=== PATIENT | female | born 1950 | race African-American/Black ===

== ENCOUNTER 2017-03-03 11:31 | Inpatient (IN) | payer OTHER ==
--- NOTE | 2017-03-03 18:21 | HP ---
CIWA Score - CIWA Score Nausea/Vomitin Muscle Tremors: 4-Moderate,w/Arms Extend Anxiety: 3 Agitation: 4-Moderately Restless Paroxysmal Sweats: 3 Orientation: 0-Oriented Tacttile Disturbances: 1-Very Mild Itch/Numbness Auditory Disturbances: 0-None Visual Disturbances: 0-None Headache: 1-Very Mild CIWA-Ar Total Score: 19 Admission ROS BHS - HPI Chief Complaint: alcohol withdrawal sx Allergies/Adverse Reactions: Allergies Allergy/AdvReac Type Severity Reaction Status Date / Time No Known Allergies Allergy Verified 03/03/17 16:03 History of Present Illness: 66 yo with h/o chronic alcoholism admitted requesting inpatient detoxification reports alcohol withdrawal sx when she does not drink, recent wt loss and blackouts. PMHX HTN, has not been taking meds, knee pain from arthritis, needs walker to ambualte. no h/o suicide attempts in [past, no suicidal ideaton at presetnt, no seizures, no DTS. - Ebola screening Have you traveled outside of the country in the last 21 days: No Have you had contact with anyone from an Ebola affected area: No Have you been sick,other than usual withdrawal symptoms: No Do you have a fever: No - Review of Systems Constitutional: Chills, Diaphoresis, Loss of Appetite, Night Sweats, Weakness, Unintentional Wgt. Loss EENT: reports: No Symptoms Reported Respiratory: reports: No Symptoms reported Cardiac: reports: No Symptoms Reported GI: reports: Diarrhea, Nausea, Poor Appetite, Poor Fluid Intake, Indigestion, Abdominal cramping : reports: No Symptoms Reported Musculoskeletal: reports: Back Pain, Joint Pain, Muscle Pain, Joint Stiffness Integumentary: reports: Dryness, Flushing, Sweating Neuro: reports: Headache, Numbness, Tingling, Tremors, Unsteady Gait (uses walker, knee pain from arthritis) Endocrine: reports: No Symptoms Reported Hematology: reports: No Symptoms Reported Psychiatric: reports: Judgement Intact, Mood/Affect Appropiate, Orientated x3, Agitated, Anxious, Depressed Other Systems: Reviewed and Negative Patient History - Patient Medical History Hx Anemia: No Hx Asthma: No Hx Chronic Obstructive Pulmonary Disease (COPD): No Hx Cancer: No Hx Cardiac Disorders: No Hx Congestive Heart Failure: No Hx Hypertension: Yes Hx Hypercholesterolemia: No Hx Pacemaker: No HX Cerebrovascular Accident: No Hx Seizures: No Hx Dementia: No Hx Diabetes: No Hx Gastrointestinal Disorders: No Hx Liver Disease: No Hx Genitourinary Disorders: No Hx Sexually Transmitted Disorders: No Hx Renal Disease (ESRD): No Hx Thyroid Disease: No Hx Human Immunodeficiency Virus (HIV): No Hx Hepatitis C: No Hx Depression: No Hx Suicide Attempt: No Hx Bipolar Disorder: No Hx Schizophrenia: No - Patient Surgical History Past Surgical History: Yes Hx Orthopedic Surgery: Yes (sx rt little toe) Other Surgical History: blephroplasty Anesthesia Reaction: No - PPD History Previous Implant?: Yes Documented Results: Positive w/o proof Implanted On Prior R Admission?: No PPD to be Administered?: No - Reproductive History Patient is a Female of Child Bearing Age (11 -55 yrs old): No Patient : No - Smoking Cessation Smoking history: Current every day smoker Have you smoked in the past 12 months: Yes Aproximately how many cigarettes per day: 20 Hx Chewing Tobacco Use: No Initiated information on smoking cessation: Yes 'Breaking Loose' booklet given: 03/03/17 - Substance & Tx. History Hx Alcohol Use: Yes Hx Substance Use: No Substance Use Type: Alcohol Hx Substance Use Treatment: Yes (2 years ago inpatient detox) - Substances Abused Alcohol Route: Oral Frequency: Daily Amount used: vodka(1 pint)beer(4-40 oz) Age of first use: 14 Date of Last Use: 03/03/17 Family Disease History - Family Disease History Family Disease History: Other: Father (alcoholism), Mother (alcoholism) Admission Physical Exam BHS - Vital Signs Vital Signs: Vital Signs - 24 hr 03/03/17 15:29 Temperature 97.2 F L Pulse Rate 79 Respiratory 20 Rate Blood Pressure 210/108 - Physical General Appearance: Yes: Nourished, Appropriately Dressed, Disheveled, Moderate Distress, Tremorous, Irritable, Sweating, Anxious HEENTM: Yes: Within Normal Limits, EOMI, Hearing grossly Normal, Normal ENT Inspection, Normocephalic, Normal Voice, YUMI, Pharynx Normal Respiratory: Yes: Within Normal Limits, Chest Non-Tender, Lungs Clear, Normal Breath Sounds, No Respiratory Distress, No Accessory Muscle Use Neck: Yes: Within Normal Limits, No masses,lesions,Nodules, Supple, Trachea in good position Breast: Yes: Breast Exam Deferred Cardiology: Yes: Within Normal Limits, Regular Rhythm, Regular Rate, S1, S2 Abdominal: Yes: Within Normal Limits, Normal Bowel Sounds, Non Tender, Flat, Soft Genitourinary: Yes: Within Normal Limits Back: Yes: Normal Inspection, Decreased Range of Motion, Muscle Spasm Musculoskeletal: Yes: full range of Motion, Gait Steady, Pelvis Stable, Back pain, Joint Stiffness (knees, uses walker), Muscle weakness Extremities: Yes: Normal Capillary Refill, Normal Inspection, Normal Range of Motion, Tremors Neurological: Yes: epic beacon analyst II-XII NML intact, Fully Oriented, Alert, Motor Strength 5/5, Normal Response, Depressed Affect Integumentary: Yes: Normal Color, Warm, Diaphoresis, Moist Lymphatic: Yes: Within Normal Limits - Addiitonal Findings: withdrawal sx - Diagnostic (1) Alcohol dependence with uncomplicated withdrawal Current Visit: Yes Status: Acute (2) Blackout Current Visit: Yes Status: Acute (3) Essential (primary) hypertension Current Visit: Yes Status: Acute (4) Weight loss Current Visit: Yes Status: Acute (5) Knee pain, chronic Current Visit: Yes Status: Acute Cleared for Admission [facility] - Detox or Rehab [facility] Level of Care: Medically Managed Detox Regimen/Protocol: Librium [facility] Breath Alcohol Content Breath Alcohol Content: 0.150 Urine Pregancy Test - Result Urine Test Results: Negative- NO Line Present Urine Drug Screen - Results Drug Screen Negative: Yes
[2017-03-03] MEDS ORDERED: chlordiazePOXIDE HCL 25 MG CAPSULE PO PRN (18:22)
[2017-03-03] MEDS ORDERED: diphenhydrAMINE HCL 50 MG CAPSULE PO PRN (18:22)
[2017-03-03] MEDS ORDERED: hydrOXYzine PAMOATE 50 MG CAPSULE (FP) PO PRN (18:22)
[2017-03-03] MEDS ORDERED: IBUPROFEN 400 MG TABLET (FP) PO PRN (18:22)
[2017-03-03] MEDS ORDERED: LOPERAMIDE HCL 2 MG CAPSULE PO PRN (18:22)
[2017-03-03] MEDS ORDERED: MENTHOL/PHENOL 1 EACH UD MM PRN (18:22)
[2017-03-03] MEDS ORDERED: MAG HYDROX/AL HYDROX/SIMETH 30 ML UNIT-DOSE CUP PO PRN (18:22)
[2017-03-03] MEDS ORDERED: MAGNESIUM HYDROX 2400MG/30ML ORAL SUSPENSION 30 ML CUP PO PRN (18:22)
[2017-03-03] MEDS ORDERED: MAGNESIUM CITRATE 300 ML BOTTLE PO PRN (18:22)
[2017-03-03] MEDS ORDERED: ACETAMINOPHEN 325 MG TABLET (FP) PO PRN (18:22)
[2017-03-03] MEDS ORDERED: guaiFENesin/D-METHORPHAN HB 10 ML UNIT-DOSE CUPS PO PRN (18:22)
[2017-03-03] MEDS ORDERED: P-EPHED 60MG/TRIPROLIDI 2.5MG TABLET PO PRN (18:22)
[2017-03-03] MEDS ORDERED: NICOTINE POLACRILEX 2 MG GUM BC PRN (18:22)
[2017-03-03] MEDS ORDERED: chlordiazePOXIDE HCL 25 MG CAPSULE PO ONE (19:00)
[2017-03-03] MEDS: HYDROCHLOROTHIAZIDE 25 MG TABLET (FP) PO SCH (19:48)
[2017-03-03] MEDS: NICOTINE 14 MG/24 HOURS TOPICAL PATCH TD SCH (20:17)
[2017-03-03 21:58] LABS: URINE APPEARANCE SLCLOUDY; URINE BILIRUBIN NEGATIVE (NEGATIVE); URINE BLOOD NEGATIVE (NEGATIVE); URINE COLOR YELLOW; URINE GLUCOSE (UA) NEGATIVE (NEGATIVE); URINE KETONE NEGATIVE (NEGATIVE); URINE NITRITE NEGATIVE (NEGATIVE); URINE PROTEIN NEGATIVE (NEGATIVE); URINE UROBILINOGEN NEGATIVE mg/dL (0.2-1.0)
[2017-03-03] MEDS: ZOLPIDEM TARTRATE 10 MG TABLET (PARK CARE ONLY) PO PRN (22:13)
[2017-03-03] MEDS: CYCLOBENZAPRINE HCL 10 MG TABLET (FP) PO SCH (22:13)
[2017-03-03] MEDS: chlordiazePOXIDE HCL 25 MG CAPSULE PO SCH (22:13)
[2017-03-03] MEDS: THIAMINE HCL 100 MG TABLET (FP) PO SCH (22:13)
[2017-03-03] MEDS: cloNIDine HCL 0.1 MG TABLET PO PRN (22:40)
[2017-03-03 22:53] LABS: URINE LEUK ESTERASE 1+ (NEGATIVE)
[2017-03-03 23:38] LABS: URINE BACTERIA MANY /hpf (NEGATIVE); URINE RBC 0-2 /hpf (0-3)
[2017-03-04] MEDS: chlordiazePOXIDE HCL 25 MG CAPSULE PO SCH ×4 (05:20→22:53)
[2017-03-04] MEDS: CYCLOBENZAPRINE HCL 10 MG TABLET (FP) PO SCH ×3 (05:21→22:53)
[2017-03-04 09:37] LABS: MCH 32.8 pg (25.7-33.7); MCHC 32.7 g/dl (32.0-36.0); MEAN CELL VOLUME 100.3 fl (80-96); MEAN PLT VOLUME 8.8 fl (7.5-11.1); PLATELET COUNT 116 K/MM3 (134-434); RDW 13.9 % (11.6-15.6); WHITE BLOOD COUNT 3.8 K/mm3 (4.0-10.0)
[2017-03-04] MEDS: PRENATAL VITAMINS W/ FOLIC ACID TABLET (FP) PO SCH (10:00)
[2017-03-04 10:03] LABS: ALBUMIN 2.7 g/dl (3.4-5.0); ALK PHOS 83 U/L (45-117); ANION GAP 5 (8-16); CALCIUM 8.5 mg/dL (8.5-10.1); CO2 34 mmol/L (21-32); CREATININE 0.9 mg/dL (0.55-1.02); GLUCOSE,RANDOM 87 mg/dL (74-106); SGOT/AST 94 U/L (15-37); SGPT/ALT 49 U/L (12-78)
[2017-03-04] MEDS: NICOTINE 14 MG/24 HOURS TOPICAL PATCH TD SCH (10:11)
[2017-03-04] MEDS: amLODIPine BESYLATE 10 MG TABLET (FP) PO SCH (10:11)
[2017-03-04] MEDS: cloNIDine HCL 0.1 MG TABLET PO PRN (10:11)
[2017-03-04] MEDS: HYDROCHLOROTHIAZIDE 25 MG TABLET (FP) PO SCH (10:11)
--- NOTE | 2017-03-04 10:11 | PN ---
S CIWA - CIWA Score Nausea/Vomitin Muscle Tremors: 3 Anxiety: 3 Agitation: 2 Paroxysmal Sweats: 1-Minimal Palms Moist Orientation: 0-Oriented Tacttile Disturbances: 1-Very Mild Itch/Numbness Auditory Disturbances: 1-Very Mild Visual Disturbances: 0-None Headache: 2-Mild CIWA-Ar Total Score: 16 BHS Progress Note (SOAP) Subjective: alert,irritable,anxious,interrupted sleep,pain in the body Objective: 03/04/17 10:09 Vital Signs Temperature 99.5 F 03/04/17 06:00 Pulse Rate 72 03/04/17 06:00 Respiratory Rate 18 03/04/17 06:00 Blood Pressure 143/71 03/04/17 06:00 O2 Sat by Pulse Oximetry (%) ekg nsr lvh no chest pain,no Laboratory Last Values WBC 3.8 K/mm3 (4.0-10.0) L 03/04/17 07:00 RBC 3.71 M/mm3 (3.60-5.2) 03/04/17 07:00 Hgb 12.2 GM/dL (10.7-15.3) 03/04/17 07:00 Hct 37.3 % (32.4-45.2) 03/04/17 07:00 MCV 100.3 fl (80-96) H 03/04/17 07:00 MCH 32.8 pg (25.7-33.7) 03/04/17 07:00 MCHC 32.7 g/dl (32.0-36.0) 03/04/17 07:00 RDW 13.9 % (11.6-15.6) 03/04/17 07:00 Plt Count 116 K/MM3 (134-434) L 03/04/17 07:00 MPV 8.8 fl (7.5-11.1) 03/04/17 07:00 Urine Color Yellow 03/03/17 21:30 Urine Appearance Slcloudy 03/03/17 21:30 Urine pH 5.0 (5.0-8.0) 03/03/17 21:30 Ur Specific [place] <= 1.005 (1.005-1.025) 03/03/17 21:30 Urine Protein Negative (NEGATIVE) 03/03/17 21:30 Urine Glucose (UA) Negative (NEGATIVE) 03/03/17 21:30 Urine Ketones Negative (NEGATIVE) 03/03/17 21:30 Urine Blood Negative (NEGATIVE) 03/03/17 21:30 Urine Nitrite Negative (NEGATIVE) 03/03/17 21:30 Urine Bilirubin Negative (NEGATIVE) 03/03/17 21:30 Urine Urobilinogen Negative mg/dL (0.2-1.0) 03/03/17 21:30 Ur Leukocyte Esterase 1+ (NEGATIVE) H 03/03/17 21:30 Urine RBC 0-2 /hpf (0-3) 03/03/17 21:30 Urine WBC 5-10 (3-5) 03/03/17 21:30 Urine Bacteria Many /hpf (NEGATIVE) 03/03/17 21:30 sob,no dizziness 03/04/17 10:10 labs pending Assessment: 03/04/17 10:10 withdrawal symptom Plan: continue detox,bp monitoring
[2017-03-04 10:52] LABS: SICKLE CELL SCREEN NEGATIVE (NEGATIVE)
--- NOTE | 2017-03-04 12:04 | EKG ---
Test Reason : Blood Pressure : / mmHG Vent. Rate : 079 BPM Atrial Rate : 079 BPM P-R Int : 166 ms QRS Dur : 074 ms QT Int : 396 ms P-R-T Axes : 080 025 068 degrees QTc Int : 454 ms NORMAL SINUS RHYTHM MINIMAL VOLTAGE CRITERIA FOR LVH, MAY BE NORMAL VARIANT BORDERLINE ECG NO PREVIOUS ECGS AVAILABLE Confirmed by FIONA GARCIA MD ([id number]) on 03/04/2017 12:04:44 PM Referred By: Confirmed By:FIONA GARCIA MD
[2017-03-04] MEDS ORDERED: cloNIDine HCL 0.1 MG TABLET PO ONE (14:30)
[2017-03-04] MEDS: cloNIDine HCL 0.1 MG TABLET PO SCH (22:53)
[2017-03-04] MEDS: ZOLPIDEM TARTRATE 10 MG TABLET (PARK CARE ONLY) PO PRN (22:53)
[2017-03-04] MEDS: THIAMINE HCL 100 MG TABLET (FP) PO SCH (22:53)
[2017-03-05] MEDS: chlordiazePOXIDE HCL 25 MG CAPSULE PO SCH ×3 (05:59→17:19)
[2017-03-05] MEDS: CYCLOBENZAPRINE HCL 5 MG TABLET PO SCH ×3 (05:59→23:08)
--- NOTE | 2017-03-05 10:02 | PN ---
S CIWA - CIWA Score Nausea/Vomitin Muscle Tremors: 3 Anxiety: 3 Agitation: 2 Paroxysmal Sweats: 1-Minimal Palms Moist Orientation: 0-Oriented Tacttile Disturbances: 1-Very Mild Itch/Numbness Auditory Disturbances: 1-Very Mild Visual Disturbances: 0-None Headache: 2-Mild CIWA-Ar Total Score: 16 BHS Progress Note (SOAP) Subjective: alert,irritable,anxious,interrupted sleep,pain in the body Objective: 03/05/17 09:56 Vital Signs Temperature 98.1 F 03/05/17 09:27 Pulse Rate 77 03/05/17 09:27 Respiratory Rate 17 03/05/17 09:27 Blood Pressure 150/90 03/05/17 09:27 O2 Sat by Pulse Oximetry (%) Laboratory Last Values WBC 3.8 K/mm3 (4.0-10.0) L 03/04/17 07:00 RBC 3.71 M/mm3 (3.60-5.2) 03/04/17 07:00 Hgb 12.2 GM/dL (10.7-15.3) 03/04/17 07:00 Hct 37.3 % (32.4-45.2) 03/04/17 07:00 MCV 100.3 fl (80-96) H 03/04/17 07:00 MCH 32.8 pg (25.7-33.7) 03/04/17 07:00 MCHC 32.7 g/dl (32.0-36.0) 03/04/17 07:00 RDW 13.9 % (11.6-15.6) 03/04/17 07:00 Plt Count 116 K/MM3 (134-434) L 03/04/17 07:00 MPV 8.8 fl (7.5-11.1) 03/04/17 07:00 Sickle Cell Screen Negative (NEGATIVE) 03/04/17 07:00 Sodium 144 mmol/L (136-145) 03/04/17 07:00 Potassium 3.5 mmol/L (3.5-5.1) 03/04/17 07:00 Chloride 105 mmol/L (98-107) 03/04/17 07:00 Carbon Dioxide 34 mmol/L (21-32) H 03/04/17 07:00 Anion Gap 5 (8-16) L 03/04/17 07:00 BUN 21 mg/dL (7-18) H 03/04/17 07:00 Creatinine 0.9 mg/dL (0.55-1.02) 03/04/17 07:00 Creat Clearance w eGFR > 60 (>60) 03/04/17 07:00 Random Glucose 87 mg/dL (74-106) 03/04/17 07:00 Calcium 8.5 mg/dL (8.5-10.1) 03/04/17 07:00 Total Bilirubin 1.0 mg/dL (0.2-1.0) 03/04/17 07:00 AST 94 U/L (15-37) H 03/04/17 07:00 ALT 49 U/L (12-78) 03/04/17 07:00 Alkaline Phosphatase 83 U/L (45-117) 03/04/17 07:00 Total Protein 7.0 g/dl (6.4-8.2) 03/04/17 07:00 Albumin 2.7 g/dl (3.4-5.0) L 03/04/17 07:00 Urine Color Yellow 03/03/17 21:30 Urine Appearance Slcloudy 03/03/17 21:30 Urine pH 5.0 (5.0-8.0) 03/03/17 21:30 Ur Specific [place] <= 1.005 (1.005-1.025) 03/03/17 21:30 Urine Protein Negative (NEGATIVE) 03/03/17 21:30 Urine Glucose (UA) Negative (NEGATIVE) 03/03/17 21:30 Urine Ketones Negative (NEGATIVE) 03/03/17 21:30 Urine Blood Negative (NEGATIVE) 03/03/17 21:30 Urine Nitrite Negative (NEGATIVE) 03/03/17 21:30 Urine Bilirubin Negative (NEGATIVE) 03/03/17 21:30 Urine Urobilinogen Negative mg/dL (0.2-1.0) 03/03/17 21:30 Ur Leukocyte Esterase 1+ (NEGATIVE) H 03/03/17 21:30 Urine RBC 0-2 /hpf (0-3) 03/03/17 21:30 Urine WBC 5-10 (3-5) 03/03/17 21:30 Urine Bacteria Many /hpf (NEGATIVE) 03/03/17 21:30 RPR Titer Nonreactive (NONREACTIVE) 03/04/17 07:00 Hepatitis C Antibody >11.0 s/co ratio (0.0-0.9) H 03/03/17 07:00 known case of hepatitis c seen in clinic at [facility],she will follow up with her pmd in clinic at the [facility] after discharge from detox 03/05/17 10:03 Assessment: 03/05/17 10:04 withdrawal symptom Plan: continue detox
[2017-03-05] MEDS: HYDROCHLOROTHIAZIDE 25 MG TABLET (FP) PO SCH (10:17)
[2017-03-05] MEDS: NICOTINE 14 MG/24 HOURS TOPICAL PATCH TD SCH (10:17)
[2017-03-05] MEDS: PRENATAL VITAMINS W/ FOLIC ACID TABLET (FP) PO SCH (10:17)
[2017-03-05] MEDS: cloNIDine HCL 0.1 MG TABLET PO SCH ×2 (10:17→22:06)
[2017-03-05] MEDS: amLODIPine BESYLATE 10 MG TABLET (FP) PO SCH (10:17)
[2017-03-05] MEDS: THIAMINE HCL 100 MG TABLET (FP) PO SCH (22:05)
[2017-03-05] MEDS: chlordiazePOXIDE 5 MG CAPSULE PO SCH (22:05)
[2017-03-06] MEDS: CYCLOBENZAPRINE HCL 5 MG TABLET PO SCH ×3 (06:17→22:12)
[2017-03-06] MEDS: chlordiazePOXIDE 5 MG CAPSULE PO SCH ×3 (06:17→17:55)
--- NOTE | 2017-03-06 09:57 | PN ---
S Progress Note (SOAP) Subjective: alert,interrupted sleep Objective: 03/06/17 09:55 Vital Signs Temperature 97.7 F 03/06/17 06:10 Pulse Rate 63 03/06/17 06:10 Respiratory Rate 16 03/06/17 06:10 Blood Pressure 150/74 03/06/17 06:10 O2 Sat by Pulse Oximetry (%) Assessment: 03/06/17 09:56 withdrawal symptom Plan: continue detox,discharge in am
[2017-03-06] MEDS: amLODIPine BESYLATE 10 MG TABLET (FP) PO SCH (10:05)
[2017-03-06] MEDS: PRENATAL VITAMINS W/ FOLIC ACID TABLET (FP) PO SCH (10:05)
[2017-03-06] MEDS: NICOTINE 14 MG/24 HOURS TOPICAL PATCH TD SCH (10:05)
[2017-03-06] MEDS: cloNIDine HCL 0.1 MG TABLET PO SCH ×2 (10:05→23:12)
[2017-03-06] MEDS: HYDROCHLOROTHIAZIDE 25 MG TABLET (FP) PO SCH (10:05)
[2017-03-06] MEDS: THIAMINE HCL 100 MG TABLET (FP) PO SCH (22:12)
[2017-03-06] MEDS: chlordiazePOXIDE HCL 10 MG CAPSULE PO SCH (23:12)
[2017-03-07] MEDS: CYCLOBENZAPRINE HCL 5 MG TABLET PO SCH (06:29)
[2017-03-07] MEDS: chlordiazePOXIDE HCL 10 MG CAPSULE PO SCH (06:29)
[2017-03-07] MEDS: PRENATAL VITAMINS W/ FOLIC ACID TABLET (FP) PO SCH (09:50)
[2017-03-07] MEDS: amLODIPine BESYLATE 10 MG TABLET (FP) PO SCH (09:51)
[2017-03-07] MEDS: HYDROCHLOROTHIAZIDE 25 MG TABLET (FP) PO SCH (09:51)
[2017-03-07] MEDS: cloNIDine HCL 0.1 MG TABLET PO SCH (09:51)
--- NOTE | 2017-03-07 09:53 | DS ---
[facility] Detox Discharge Summary Admission Date: 03/03/17 Discharge Date: 03/07/17 - History Present History: Alcohol Dependence Additional Comments: FOLLOW UP WITH AFTER CARE PROGRAM ARRANGEMENT AND PMD AT [facility] Pertinent Past History: ESSENTIAL HYPERTENSION SYNCOPE CHRONIC KNEE PAIN WEIGHT LOSS HEPATITIS C WALKER AMBULATORY AID - Physical Exam Results Vital Signs: Vital Signs Temperature 98.1 F 03/07/17 07:58 Pulse Rate 75 03/07/17 07:58 Respiratory Rate 18 03/07/17 07:58 Blood Pressure 159/82 03/07/17 07:58 O2 Sat by Pulse Oximetry (%) Pertinent Admission Physical Exam Findings: WITHDRAWAL SYMPTOM - Treatment Hospital Course: Detox Protocol Followed, Detoxed Safely, Responded well, Discharged Condition Good Patient has Accepted a Rehab Referral to: DECLINED - Medication Discharge Medications: Ambulatory Orders Amlodipine Besylate [Norvasc -] 10 mg PO DAILY 03/03/17 - Diagnosis (1) Alcohol dependence with uncomplicated withdrawal Current Visit: Yes Status: Acute (2) Blackout Current Visit: Yes Status: Acute (3) Essential (primary) hypertension Current Visit: Yes Status: Acute (4) Knee pain, chronic Current Visit: Yes Status: Acute (5) Weight loss Current Visit: Yes Status: Acute (6) Hepatitis C Current Visit: Yes Status: Acute (7) Walker as ambulation aid Current Visit: Yes Status: Acute - AMA Did Patient Leave Against Medical Advice: No
[2017-03-07 10:53] VITALS: BP 125/85; PULSE 109; TEMP 96
[2017-03-09 10:12] LABS: HCV LOG 10 6.683 (.)
== END 2017-03-07 10:57 | disposition home or self-care (01) | DRG 897 ==
LOC: YASAS 11:31 → Y6N 17:59
PROVIDERS: ADMIT Internal Medicine; ATTEND Internal Medicine
PROC: HZ2ZZZZ Detoxification Services for Substance Abuse Treatment (ICD-10-PCS; principal; 2017-03-03)
DX: F10.230 Alcohol dependence with withdrawal, uncomplicated (principal); F17.210 Nicotine dependence, cigarettes, uncomplicated; I10 Essential (primary) hypertension; B18.2 Chronic viral hepatitis C; R26.2 Difficulty in walking, not elsewhere classified; Z99.89 Dependence on other enabling machines and devices; M25.562 Pain in left knee; M25.561 Pain in right knee; Z87.898 Personal history of other specified conditions
CPT/HCPCS: 36415; 71020-TC; 80053; 81003; 81015; 85027; 85660; 86593; 86803; 87522; 93005; 93010